=== PATIENT | male | born 1990 | race Two or more races ===

== ENCOUNTER 2021-12-19 07:41 | Emergency (ER) | payer MEDICAID, OTHER ==
[~2021-12-19] VITALS: Ht 188 cm; Wt 86.2 kg
[2021-12-19 07:51] VITALS: BP 151/88
[2021-12-19] MEDS ORDERED: KETOROLAC TROMETH 60MG/2ML VIAL IM ONE (08:00)
[2021-12-19] MEDS ORDERED: BACL10TA PO (08:29)
[2021-12-19] MEDS ORDERED: IBUP800T27 PO (08:29)
== END 2021-12-19 08:38 | disposition home or self-care (01) ==
LOC: ER 07:41
DX: M54.41 Lumbago with sciatica, right side (principal)
CPT/HCPCS: 96372; 99283; J1885

== ENCOUNTER 2023-01-13 08:57 | Emergency (ER) | payer BC, OTHER ==
[~2023-01-13] VITALS: Ht 185.4 cm; Wt 84.0 kg
[~2023-01-13 08:57] MED LIST: BACL10TA PO; IBUP800T27 PO; METH750T22 PO
[2023-01-13] MEDS ORDERED: KETOROLAC TROMETH 30 MG/ML 1ML VIAL IM ONE (11:30)
[2023-01-13] MEDS ORDERED: MORPHINE SULFATE 4 MG/ML SYR/VIAL IM ONE (12:45)
[2023-01-13] MEDS ORDERED: ONDANSETRON ODT 4 MG TAB PO ONE (12:45)
[2023-01-13 13:11] VITALS: BP 120/81
[2023-01-13] MEDS ORDERED: CYCL-839 PO (13:15)
[2023-01-13] MEDS ORDERED: LIDO5PAD8 EX (13:15)
== END 2023-01-13 14:23 | disposition home or self-care (01) ==
LOC: ER 08:57
DX: M54.31 Sciatica, right side (principal); Z79.899 Other long term (current) drug therapy
CPT/HCPCS: 96372; 99284; J1885; J2270; Q0162

== ENCOUNTER 2023-01-23 08:48 | Emergency (ER) | payer BC, OTHER ==
[~2023-01-23] VITALS: Ht 185.4 cm; Wt 83.6 kg
[~2023-01-23 08:48] MED LIST changes: +CYCL-839 PO; +LIDO5PAD8 EX
[2023-01-23] MEDS ORDERED: IBUP800T27 PO ×2 (09:12)
[2023-01-23] MEDS ORDERED: METH750T22 PO ×2 (09:12)
[2023-01-23] MEDS ORDERED: KETOROLAC TROMETH 60MG/2ML VIAL IM ONE (09:15)
[2023-01-23] MEDS ORDERED: HYDROcodone-ACET 5/325MG TAB PO ONE (09:30)
[2023-01-23 09:41] VITALS: BP 127/90
[2023-01-23] MEDS ORDERED: HYDR-4902 PO (10:42)
[2023-01-23] MEDS ORDERED: PRED20TA2 PO (10:42)
== END 2023-01-23 11:09 | disposition home or self-care (01) ==
LOC: ER 08:48
DX: M51.17 Intervertebral disc disorders with radiculopathy, lumbosacral region (principal); M48.061 Spinal stenosis, lumbar region without neurogenic claudication; F17.210 Nicotine dependence, cigarettes, uncomplicated; Z79.899 Other long term (current) drug therapy
CPT/HCPCS: 72131; 96372; 99285; J1885